=== PATIENT | male | born 1980 | race Caucasian/White ===

== ENCOUNTER 2016-08-24 10:36 | Emergency (ER) | payer MEDICAID ==
[~2016-08-24] VITALS: Ht 182.9 cm; Wt 74.8 kg
[2016-08-24 10:39] VITALS: BP 128/70
[2016-08-24] MEDS ORDERED: HYDROcodone/APAP 5/325 TABLET PO ONE (11:30)
[2016-08-24] MEDS ORDERED: HYDROcodone/APAP 5/325 TABLET ONE (11:48)
== END 2016-08-24 13:07 | disposition home or self-care (01) ==
LOC: ED 12:31
DX: S93.432A Sprain of tibiofibular ligament of left ankle, initial encounter (principal); S93.492A Sprain of other ligament of left ankle, initial encounter; W01.0XXA Fall on same level from slipping, tripping and stumbling without subsequent striking against object, initial encounter; Y93.89 Activity, other specified; Y92.812 Truck as the place of occurrence of the external cause; Y99.0 Civilian activity done for income or pay
CPT/HCPCS: 99284